=== PATIENT | male | born 1970 | race Caucasian/White ===

== ENCOUNTER → 2020-06-07 14:42 | Outpatient (BNVA) | payer OTHER, SELFPAY | PROVIDERS: Visit Provider Nurse Practitioner Family | DX: Z76.89 Persons encountering health services in other specified circumstances (principal) ==

== ENCOUNTER 2020-06-13 10:19 | Outpatient (REF) | payer OTHER, SELFPAY ==
[2020-06-13 11:11] LABS: Hematocrit 44.8 % (42-52); Mean Corpuscular HGB Conc 33.5 g/dl (31.0-36.0); Mean Corpuscular Hemoglobin 29.9 pg (27.0-33.0); Mean Corpuscular Volume 89.2 fL (80-98); Mean Platelet Volume 11.3 fL (9.4-12.4); Platelet Count 180 X10*3/uL (160-400); Red Blood Count 5.02 X10*6/uL (4.60-5.80); Red Cell Distribution Width 12.6 % (11.0-16.0); White Blood Count 6.8 X10*3/uL (4.8-10.8)
[2020-06-13 11:37] LABS: Alanine Aminotransferase 51 U/L (0-40); Albumin Level 4.3 g/dL (3.5-5.0); Alkaline Phosphatase 60 U/L (39-117); Anion Gap 13 (12-20); Aspartate Amino Transferase 36 U/L (5-37); Bilirubin Total 0.6 mg/dL (0.0-1.0); Blood Urea Nitrogen 13 mg/dL (9-16); Calcium 8.8 mg/dL (8.4-10.2); Carbon Dioxide 29 mmol/L (22-29); Chloride 105 mmol/L (96-108); Estimated Glomerular Filt Rate > 60; Glucose Random 96 mg/dL (60-115); Potassium 4.8 mmol/l (3.3-5.1); Sodium 142 mmol/L (135-145); Total Protein 7.6 g/dL (6.5-8.0)
== END 2020-06-13 10:20 | disposition home or self-care (01) ==
LOC: HO.LAB 10:19
PROVIDERS: Visit Provider Nurse Practitioner Family
DX: Z12.11 Encounter for screening for malignant neoplasm of colon (principal)
CPT/HCPCS: 36415; 80053; 85027

== ENCOUNTER 2020-08-04 09:00 | Day surgery (SDC) | payer OTHER, SELFPAY ==
[2020-07-29 12:27] VITALS: BMI 31.8
--- NOTE | 2020-08-04 | ECG_ITS ---
Test Reason : HTN, ST DEPRESSION Blood Pressure : / mmHG Vent. Rate : 069 BPM Atrial Rate : 069 BPM P-R Int : 130 ms QRS Dur : 092 ms QT Int : 428 ms P-R-T Axes : 050 034 126 degrees QTc Int : 458 ms Normal sinus rhythm [address] & T wave abnormality, consider anterolateral ischemia Abnormal ECG No previous ECGs available Referred By: Lacey Freeman Electronically Signed By:CLEVELAND ROMERO
[2020-08-04 10:05] VITALS: BMI 32.1
--- NOTE | 2020-08-04 10:09 | P.CONAN_ITS ---
HPI - Anesthesia Eval Consult details Narrative: 50 year old male patient here for colonoscopy [facility] Past Medical History Medical History Diverticulitis HTN (hypertension) Lab test negative for COVID-19 virus Family History Family History Mother HTN (hypertension) Heart problem Father No pertinent past medical history Family history of problems with anesthesia: No Surgical History Surgical History H/O sinus surgery History of Problems with Anesthesia: No Social History Social History Are you a primary palliative care physician to a significant other at home: No Do you presently have visiting nurse or other home services: No Alcohol intake: current Alcohol intake frequency: holidays/special occasions only Smoking Status: Former smoker Tobacco Type: Cigarette Smoking Quit Date: as teenager Use of substances other than those prescribed or required for medical reasons: No Substance Use Type: Marijuana Substance Use Frequency: Occasionally Have you been hit, kicked, punched, or otherwise hurt by someone within the past year? If so, by whom?: No Advance Directives Information Provided: No Recently lost weight without trying: No Meds Allergies Allergy/AdvReac Type Severity Reaction Status Date / Time shellfish derived Allergy Severe Anaphylaxis Verified 08/04/20 10:15 Penicillins Allergy Intermediate Rash Verified 08/04/20 10:15 Active Medications: Current Medications Generic Name Dose Route Start Last Admin Trade Name Freq PRN Reason Stop Dose Admin Lactated Ringer's 1,000 mls @ 100 mls/hr 08/04/20 10:15 Lr IVCONT .Q10H [facility] Home Medications Medication Instructions Recorded Confirmed Last Taken Type lisinopril 5 mg tablet 5 mg PO DAILY 06/07/20 07/29/20 Unknown History Exam Exam Date and Time: August 04, 2020 1009 Height,Weight and Vital Signs: Height 5 ft 6 in Weight 89.358 kg Vital Signs Temp Pulse Resp BP Pulse Ox 08/04/20 10:12 98.5 F 77 18 158/102 H 98 Narrative Narrative: Diastolic BP 102-104. Patient states taking lisinopril but did not take his dose today. Had been on metoprolol in the past but has been on lisin opril for years. EKG on monitor- tall QRS with ?ST depression ??LVH. Will get 12lead EKG (Tried to obtain old EKG from his PCP at [facility] but office did not worm picker). 12 lead EKG obtained- read as SR? anterolateral ischemia. Patient is asymptomatic and denies any history of chest pain or any cardiac symptoms. Only occasional mild SOB with exertion. In light of the fact that patient is asymptomatic, do not expect much perturbation with blood pressure or fluid shifts and he has already done the prep, I think it is reasonable to proceed with colonoscopy. We will control BP as needed for the procedure. The EKG finding was discussed with the patient through the vice president of recruiting and he will follow up with his PCP and ? echo as an outpatient.Dr Rachel gerardo. Spoke with textile designs sales representative and agrees with plan. Airway Mallampati Class: III TM Dist: >3cm Neck ROM: Full Heart: RRR Lungs: CTAB Assessment and Plan Assessment Anesthesia Assessment: Anesthesia Plan Discussed and Chart Reviewed Final Anesthetic Review NPO: Yes ASA Class: III Final Preanesthetic Review: No Changes in Pt Med Stat, Meds/Allgs Chart Reviewed, Consent Obtained/Reviewed and Anes Risks/Benef Reviewed Patient Risk: Intermediate Procedure Risk: Low Assessment/Block/Sedation in SS: Assess/Block/Sedation-SS Anesthetic Plan Anesthetic Plan: MAC: Disposition: Standard PACU
[2020-08-04 10:11] VITALS: BMI 32.1
[2020-08-04 10:12] VITALS: BP 158/102; PULSE 77; RESP 18; TEMP 36.9; O2SAT 98
[2020-08-04] MEDS: Lactated Ringers 1,000 ML 100 ML IVCONT (10:13)
--- NOTE | 2020-08-04 11:31 | P.HPSUR_ITS ---
Pre-Procedural Eval Section B Chief Complaint: screening Relevant Family History (Specify if Yes): No Relevant Social History: Other (specify) (thc) Present Medications: see Short Stay Collaborative assessment Medical History: Significant History (Diverticulitis HTN (hypertension)) History of Previous Operations: Relevant previous surgery/procedure and date(s) (sinus surgery) Allergies: Allergies Allergy/AdvReac Type Severity Reaction Status Date / Time shellfish derived Allergy Severe Anaphylaxis Verified 08/04/20 10:15 Penicillins Allergy Intermediate Rash Verified 08/04/20 10:15 Review of Systems Sugical H&P ROS: Negative: Constitution, Cardiovascular, Respiratory, Neurolog ical, Psychiatric, Hem-Onc, Allergic/Immunologic, Gastrointestinal, Genitourinary, Musculoskeletal, Integumentary, Endocrine and Eyes/Ears/Nose/Throat Exam Surgical H&P Exam: Normal: HEENT, Normal: Heart, Normal: Lungs, Normal: Extremities, Normal: Abdomen, Normal: Skin and Normal: Neurological Plan Diagnosis/Plan: Unchanged I have reviewed the history and physical and performed a pertinent physical examination on my patient. No changes have occurred unless specified.
--- NOTE | 2020-08-04 11:33 | PM.OP ---
Brief Operative Note Date of Service: 08/04/20 Pre-op diagnosis: colon screening Post-op diagnosis: same Procedure: see op note Surgeon: Prema Ramos MD Anesthesia: MAC Estimated blood loss (mL): 0 Condition: stable Disposition: PACU
--- NOTE | 2020-08-04 11:33 | W.PM.OPN ---
Operative Note Operative Note Date of Service: 08/04/20 Narrative: Operative Information Procedure Description: Colonoscopy COLONOSCOPY Instrument: Olympus variable stiffness pediatric scope 190L Colonoscopy Monitoring: Vital signs and clinical assessment, continuous EKG monitoring, Pulse oximetry, Carbon Dioxide monitoring and blood pressure monitoring were done throughout the procedure. Colon withdrawal time was 10 minutes. Procedure: The patient was placed in the left lateral decubitis position and pre-procedure medications were administered. After a digital rectal examination of the ano-rectum, the video colonoscope was inserted into the rectum and advanced through the colon to the cecum/TI. The colonoscope was slowly withdrawn in a retrograde panoramic fashion and the colon mucosa was carefully examined including a retroflexed view of the rectum. Findings and interventions are described below. Procedure Difficulty:easy Findings: Terminal Ileum-mild isolated erythema in one spot Cecum:normal Ascending Colon: normal Transverse Colon -normal Descending Colon:normal Sigmoid Colon: scattered small diverticula noted Rectum: Retroflexion with small internal hemorrhoids, grade II Anorectum - internal hemorrhoids seen at anal verge Colon preparation: [place] Bowel Preparation Scale Right colon; 3 Transverse colon: 3 Left colon; 3 (0 = Unprepared colon segment with mucosa not seen due to solid stool that cannot be cleared. 1 = Portion of mucosa of the colon segment seen, but other areas of the colon segment not well seen due to staining, residual stool and/or opaque liquid. 2 = Minor amount of residual staining, small fragments of stool and/or opaque liquid, but mucosa of colon segment seen well. 3 = Entire mucosa of colon segment seen well with no residual staining, small fragments of stool or opaque liquid) Impression and Post Procedure Diagnosis: mild ileitis, of doubtful significance diverticular disease internal hemorrhoids Plan: High fiber diet leaflet Avoid straining at stool, epsom salts and sitz bath, anusol supps or cream as needed Repeat Colonoscopy in 10 years or earlier if clinically indicated Above findings were reviewed with the patient and relevant handouts were provided if indicated.
[2020-08-04 12:04] VITALS: BP 135/79; PULSE 80; RESP 14; TEMP 36.2; O2SAT 99
[2020-08-04 12:19] VITALS: BP 143/95; PULSE 91; RESP 18; O2SAT 100
[2020-08-04 12:29] VITALS: TEMP 36.6
== END 2020-08-04 13:03 | disposition home or self-care (01) ==
PROVIDERS: Visit Provider Internal Medicine Gastroenterology
PROC: 0DJD8ZZ Inspection of Lower Intestinal Tract, Via Natural or Artificial Opening Endoscopic (ICD-10-PCS; CPT 45378; principal; 2020-08-04 11:50)
DX: Z12.11 Encounter for screening for malignant neoplasm of colon (principal); Z87.19 Personal history of other diseases of the digestive system; K57.30 Diverticulosis of large intestine without perforation or abscess without bleeding; K64.1 Second degree hemorrhoids; K59.00 Constipation, unspecified; I10 Essential (primary) hypertension; Z79.899 Other long term (current) drug therapy; Z87.891 Personal history of nicotine dependence; F12.90 Cannabis use, unspecified, uncomplicated; Z88.0 Allergy status to penicillin
CPT/HCPCS: 45378; 93005

== ENCOUNTER 2023-11-12 08:15 | Outpatient (REF) | payer OTHER, SELFPAY ==
[2023-11-12 11:32] LABS: Estimated Average Glucose 123 mg/dL; Hemoglobin A1c % 5.9 % (<6.0)
[2023-11-12 12:00] LABS: Creatinine Urine 176.54 mg/dL; Microalbum/Creatinine Ratio Ur 15.8 ug/mg cr (<30)
[2023-11-12 12:17] LABS: Anion Gap 12 (12-20); Blood Urea Nitrogen 11 mg/dL (9-16); Carbon Dioxide 26 mmol/L (22-29); Chloride 106 mmol/L (96-108); Cholesterol 208 mg/dL (<200); Estimated Glomerular Filt Rate > 60; Glucose Random 109 mg/dL (60-115); HDL Cholesterol 44 mg/dL (>40); LDL Cholesterol Calculated 154 mg/dL (<100); Potassium 4.5 mmol/L (3.3-5.1); Sodium 139 mmol/L (135-145); Triglycerides 54 mg/dL (<150)
== END 2023-11-12 08:16 | disposition home or self-care (01) ==
LOC: HO.HHCL 08:15
PROVIDERS: Visit Provider Nurse Practitioner
DX: I10 Essential (primary) hypertension (principal)
CPT/HCPCS: 36415; 80048; 80061; 82043; 82570; 83036

== ENCOUNTER 2024-07-23 07:57 | Outpatient (REF) | payer OTHER, SELFPAY ==
--- OUTSIDE RECORDS SUMMARY | 2024-07-23 07:59 | XMS_ITS | Clinical Summary ---
Author Organization [facility] it Address [address] [place] [address] Care Team Providers Care Energy Projects Lead Name Role Phone Unavailable Primary Care Provider Unavailabl e Social History Tobacco Use Types Packs/Day Years Used Date Smoking Tobacco: Never Assessed Sex and Gender Information Value Date Recorded Sex Assigned at Not on file Legal Sex Male 6:15 AM EST Gender Identity Not on file Sexual Orientation Not on file Plan of Treatment Health Maintenance Due Date Last Done Comments DTaP,Tdap,and Td Vaccines (1 - Tdap) 1988 Hepatitis B Vaccines (1 of 3 - 19+ 3-dose series) 1988 Pneumococcal Vaccine: 50+ Ye ars (1 of 1 - PCV) 2019 Zoster Vaccines (1 of 2) 2019 Cholesterol Screening (Lipid Panel) 01/28/2024 Colorectal Cancer Screening: Colonoscopy 01/28/2024 Depression Screening 01/28/2024 HIV Screening 01/28/2024 Hepatitis C Screening 01/28/2024 Hypertension/CHF/CAD Annual BMP Blood Test 01/28/2024 Social Influencers of Health Screening 01/28/2024 COVID-19 Vaccine ( - 2023-2 5 season) 2024 Influenza Vaccine (#1) 2024 HIB Vaccines Aged Out No longer eligi ble based on patient's age to complete this topic HPV Vaccines Aged Out No longer eligi ble based on patient's age to complete this topic Hepatitis A Vaccines Aged Out No long er eligible based on patient's age to complete this topic IPV Vaccines Aged Out No longer eligi ble based on patient's age to complete this topic MMR Vaccines Aged Out No longer eligi ble based on patient's age to complete this topic Meningococcal ACWY Vaccine Aged Out N o longer eligible based on patient's age to complete this topic Meningococcal B Vacine Aged Out No lo nger eligible based on patient's age to complete this topic Pneumococcal Vaccine: Pediat rics (0 to 5 Years) and At-Risk Patients (6 to 64 Years) Aged Out No longer eligible b ased on patient's age to complete this topic RSV Immunization Patients Un lucien 20 months Aged Out No longer eligible b ased on patient's age to complete this topic Varicella Vaccines Aged Out No longer eligible based on patient's age to complete this topic
--- OUTSIDE RECORDS SUMMARY | 2024-07-23 07:59 | XMS_ITS | Encounter Summary ---
Author Organization [employer] Address [address] [facility] [address] [place] [address] Care Team Providers Care Advanced Practice Registered Nurse Name Role Phone Reshma Chiu NP Primary Care Provider [phone] Reason for Visit * Reason Comments Follow-up Encounter Details Date Type Department Care Team ([facility] st Contact Info) Description 07/22/2024 3:30 PM EST Office Visit [facility] [address] [place] [address] Reshma Chiu NP [address] [place] [address] Encounter for health-related screening (Primary Dx); Essential hypertension; Encounter for immunization Social History Tobacco Use Types Packs/Day Years Used Date Smoking Tobacco: Never Smokeless Tobacco: Never Alcohol Answer Date Recorded How often do you have a drink containing alcohol ? 2 11/08/2023 How many drinks containing a lcohol do you have on a typical day when you are drinking? 2 11/08/2023 How often do you have six or more drinks on one occasion? 2 11/08/2023 Depression Answer Date Recorded Patient Health Questionnaire-9 Score 4 02/24/2024 Patient Health Questionnaire-9 Score 4 02/24/2024 Last PHQ-9: Questionnaire Data Not on file 0 02/24/2024 Housing Stability Answer Date Recorded What is your housing situation today? I have housing today, but I am worried about losing housing in the future 11/08/[address] you li ve. Do you have problems with any of the following? None of the above 11/08/2023 Food Insecurity Answer Date Recorded Within the past 12 months, y ou worried that your food would run out before you got money to buy more: Often true 11/08/2023 Within the past 12 months,th e food you bought just didn't last and you didn't have enough money to get more: Often true 12/2023 Transportation Answer Date Recorded In the past 12 months, has l ack of transportation kept you from medical appts, meetings, work or from getting things needed for daily living? No 11/08/2023 Utilities Answer Date Recorded In the past 12 months, has t he [employer], gas, oil or water [employer] threatened to shut off services in your home? I am not sure 11/08/2023 Depression Answer Date Recorded Patient Health Questionnaire-2 Score 3 02/24/2024 Sex and Gender Information Value Date Recorded Sex Assigned at Male 04/02/2022 10:35 AM EDT Legal Sex Male 10:35 AM EDT Gender Identity Male 04/02/2022 10:35 AM EDT Sexual Orientation Straight 04/02/2022 10 :35 AM EDT documented as of this encounter Last Filed Vital Signs Vital Sign Reading Time Taken Comments Blood Pressure 148/82 07/22/2024 4:37 PM EST Pulse 78 07/22/2024 4:04 PM EST Temperature 37 ??C (98.6 ??F) 07/22/2024 4:04 PM EST Respiratory Rate 18 07/22/2024 4:04 PM EST Oxygen Saturation 98% 07/22/2024 4:04 PM EST Inhaled Oxygen Concentration - - Weight 87.4 kg (192 lb 9.6 oz) 07/22/2024 4:04 P M EST Height 167.6 cm (5' 6 ) 07/22/2024 4:04 PM EST Body Mass Index 31.09 07/22/2024 4:04 PM EST documented in this encounter Plan of Treatment Scheduled Orders Name Type Priority Associated Diagnoses Orde r Schedule HIV-1/2 Antigen and Antibodies, Fourth Generation, with Reflexes Lab Routine Encounter for health-related screening Expected: 07/22/2024 (Approximate), Expires: 07/22/2025 Hepatitis C Antibody with Reflex to HCV, RNA, Quantitative, Real-Time PCR Lab Routine Encounter for health-related screening Expected: 07/22/2024 (Approximate), Expires: 07/22/2025 Hepatitis B surface antigen, EIA Lab Routine Encounter for health-related screening Expected: 07/22/2024 (Approximate), Expires: 07/22/2025 Hepatitis B Surface Antibody, Qualitative Lab Routine Encounter for health-related screening Expected: 07/22/2024 (Approximate), Expires: 07/22/2025 Hepatitis B Core Antibody, Total Lab Routine Encounter for health-related screening Expected: 07/22/2024 (Approximate), Expires: 07/22/2025 documented as of this encounter Visit Diagnoses Diagnosis Encounter for health-related screening- Primary Essential hypertension Unspecified essential hypertension Encounter for immunization documented in this encounter Additional Health Concerns Assessment Noted Time PHQ-9 Depression Total Score: 4 02/24/20 24 12:07 PM EDT documented as of this encounter Care Teams Advanced Practice Registered Nurse Relationship Specialty Start Date End Date Reshma Chiu NP [address] [place] [id number] PCP - General Family Medicine 07/08/23 documented as of this encounter
--- OUTSIDE RECORDS SUMMARY | 2024-07-23 07:59 | XMS_ITS | Encounter Summary ---
Author Organization [employer] Address [address] [facility] [address] [place] [address] Care Team Providers Care Aerodynamics Engineer Name Role Phone Reshma Chiu NP Primary Care Provider [phone] Reason for Visit * Reason Comments Follow-up Encounter Details Date Type Department Care Team ([facility] st Contact Info) Description 07/10/2024 3:30 PM EST Office Visit [facility] [address] [place] [address] Reshma Chiu NP [address] [place] [address] Primary hypertension Social History Tobacco Use Types Packs/Day Years [...] the past 12 months, has t he [employer], gas, oil or water [employer] threatened to shut off services in your [...] Sign Reading Time Taken Comments Blood Pressure 176/100 07/10/2024 4:04 PM EST Pulse 80 07/10/2024 4:04 PM EST Temperature 36.7 ??C (98.1 ??F) 07/10/2024 4:04 PM ES T Respiratory Rate 20 07/10/2024 4:04 PM EST Oxygen Saturation 98% 07/10/2024 4:04 PM EST Inhaled Oxygen Concentration - - Weight 86.6 kg (191 lb) 07/10/2024 4:04 PM EST Height 167.6 cm (5' 6 ) 07/10/2024 4:04 PM EST Body Mass Index 30.83 07/10/2024 4:04 PM EST documented in this encounter Plan of Treatment Not on file documented as of this encounter Visit Diagnoses Diagnosis Primary hypertension Unspecified essential hypertension documented in this encounter Additional Health Concerns Assessment Noted Time PHQ-9 Depression Total Score: 4 02/24/20 24 12:07 PM EDT documented as of this encounter Care Teams Aerodynamics Engineer Relationship Specialty Start Date End Date Reshma Chiu NP [address] [place] [id number] PCP - General Family Medicine 07/08/23 documented as of this encounter
--- OUTSIDE RECORDS SUMMARY | 2024-07-23 07:59 | XMS_ITS | Encounter Summary ---
Author Organization [employer] Address [address] [facility] [address] [place] [address] Care Team Providers Care Voice Pathologist Name Role Phone Reshma Chiu NP Primary Care Provider Reason for Visit * Reason Onset Date Comments chartprep 07/07/2024 Encounter Details Date Type Department Care Team (Late st Contact Info) Description 07/07/2024 Telephone [facility] [address] [place] [address] Lashay Ziegler MA chartprep Social History Tobacco Use Types Packs/Day Years [...] the past 12 months, has t he electric, gas, oil or water company threatened to shut off services in your [...] AM EDT documented as of this encounter Miscellaneous Notes * Telephone Encounter - Lashay Ziegler MA - 07/07/2024 12:07 PM EST Chart Prep Labs: done except Lipid panel and CMP Images: not done XR lumbar spine Vaccines due: Covid Due, Tdap Due, Hep B Due, Flu Due, and Shingles in pharmacy Due Referrals: Physical Therapy Pending appointment on Screenings: Colonoscopy and HIV screening Overdue care gaps: None documented in this encounter Plan of Treatment Not on file documented as of this encounter Visit Diagnoses Not on filedocumented in this encounter Additional Health Concerns Assessment Noted Time PHQ-9 Depression Total Score: 4 02/24/20 12:07 PM EDT documented as of this encounter Care Teams Voice Pathologist Relationship Specialty Start Date End Date Reshma Chiu NP [address] [place] [address] PCP - General Family Medicine 07/08/23 documented as of this encounter
--- OUTSIDE RECORDS SUMMARY | 2024-07-23 07:59 | XMS_ITS | Clinical Summary ---
Author Organization [employer] Address [address] [facility] [address] [place] [address] Care Team Providers Care Jewel Gauger Name Role Phone Reshma Chiu NP Primary Care Provider [phone] Allergies Active Allergy Reactions Criticality Noted Date Comments Penicillin G Hives 10/06/2018 Shellfish Allergy Hives 02/24/2024 Medications lidocaine (Lidoderm) 5 % patchIndication s:Lumbar back pain Apply 1 patch topically Once per day. Remove & discard patch within 12 hours or as directed by MD. 30 patch 1 02/24/20 24 Active baclofen (Lioresal) 10 MG tabletIndicatio ns:Lumbar back pain Take one tablet TID PRN 30 tablet 02/24/20 24 Active losartan (Cozaar) 50 MG tabletIndicatio ns:Primary hypertension Take 1 tablet (50 mg) by mouth 2 times daily. 60 tablet 1 07/10/19 25 025 Active labetalol (Normodyne) 200 MG tabletIndicatio ns:Primary hypertension Take 1 tablet (200 mg) by mouth 2 times daily. 60 tablet 07/10/19 25 025 Active amLODIPine (Norvasc) 10 MG tabletIndicatio ns:Primary hypertension Take 1 tablet (10 mg) by mouth Once per day. 30 tablet 07/10/19 25 025 Active aspirin 81 MG chewable tabletIndicatio ns:Essential hypertension Chew 1 tablet (81 mg) Once per day. 30 tablet 3 07/22/19 25 025 Active amLODIPine (Norvasc) 10 MG tabletIndicatio ns:Primary hypertension Take 1 tablet (10 mg) by mouth Once per day. 30 tablet 10/18/19 24 025 Discontinued(Re order (will not trigger notification to Pharmacy)) labetalol (Normodyne) 200 MG tabletIndicatio ns:Primary hypertension Take 1 tablet (200 mg) by mouth 2 times daily. 60 tablet 10/18/19 24 025 Discontinued(Re order (will not trigger notification to Pharmacy)) losartan (Cozaar) 50 MG tabletIndicatio ns:Primary hypertension Take 1.5 tablets (75 mg) by mouth Once per day. 45 tablet 10/18/19 24 025 Discontinued(Re order (will not trigger notification to Pharmacy)) Active Problems Problem Noted Date Diagnosed Date Hypercholesterolemia 05/20/2024 Assessment & Plan (05/20/2024 5:49 PM EST): Images from the original note were not included. -discussed importance of lifestyle modifications for prevention of stroke or heart attack -plan to start statin at next visit as patient has not proven effective management of his BP meds -will benefit from aspirin therapy for primary prevention as well however, patient's BP does not support this intervention Prediabetes 10/08/2018 Essential hypertension 10/06/2018 Assessment & Plan (05/20/2024 5:54 PM EST): -hypertension is not controlled. BP elevated in clinic today, but he states he has not taken his medications as of yet today. He is asymptomatic and advised to take his medications immediately following this appointment -No evidence of kidney impairment based on labs completed 11/12/23 -ASCVD risk 9.9% -discussed in detail negative implications associated with lack of BP control -strongly recommended he eliminate salt from his diet. Especially daily ham sandwich and monitor for changes in his lunch time readings. -stress management strongly encouraged -Reviewed diet, exercise and weight control -Reviewed appropriate medication dosing in detail with patient verbalizing understanding. Will likely benefit from change in ARB frequency -discussed BP follow-up on 03/02 with team nurses. He is encouraged to bring his BP log -ED precautions reviewed -Repeat labs ordered prior to next appointment. Assessment & Plan (01/21/2024 12:38 PM EDT): -BP above target goal of <130/80 mmHg -continue losartan 50 mg, amlodipine 10 mg, and labetalol 200 mg -microalbumin: ordered today -ASCVD risk: to be calculated pending lipid results -12 lead EKG: will obtain at next visit -daily BP monitoring advised -low salt diet and 30 min moderate intensity daily exercise recommended -Reviewed ED precautions to include chest pain, shortness of breath, severe headache, sudden vision changes or BP >=180/>=120 mmHg. -Call clinic if three or more BP readings >130/80 mmHg. -follow-up 1 month Assessment & Plan (01/14/2024 11:13 AM EDT): -patient denies need for medication refill -ED precautions reviewed -will schedule for in-person visit for follow-up in about 2 weeks Chronic low back pain 10/06/2018 Obesity 10/06/2018 Chronic constipation 10/06/2018 Encounters Date Type Department Care Team Description 07/22/2024 3:30 PM EST Office Visit [facility] [address] [place] [phone] Reshma Chiu NP Encounter for health-related screening (Primary Dx); Essential hypertension; Encounter for immunization 07/22/2024 Travel 07/10/2024 3:30 PM EST Office Visit [address] [address] Reshma Chiu NP Primary hypertension 07/07/[address] [address] Lashay Ziegler MA chartprep 06/16/[address] [address] Lashay Ziegler MA chartprep 05/21/[address] [address] Gretel Ordaz RN from Last 3 Months Immunizations Name Administration Dates Next Due Hep B, Unspecified 12/29/2015 Hep B, adult 01/30/2016,12/29/2015 Tdap 07/22/2024 Social History Tobacco Use Types Packs/Day Years [...] Orientation Straight 04/02/2022 10 :35 AM EDT Last Filed Vital Signs Vital Sign Reading [...] Mass Index 31.09 07/22/2024 4:04 PM EST Plan of Treatment Health Maintenance Due Date Last Done Comments CT Colonography 1969 Colonoscopy 1969 Colorectal Cancer Screening 1969 FIT DNA/Cologuard 1969 FIT 1969 FOBT 1969 HIV Screening 1969 Sigmoidoscopy 1969 Hepatitis C Screening 1987 Hepatitis B Vaccines (3 of 3 - 19+ 3-dose series) 06/30/2016 01/30/2016, 12/29/2015, 12/29/2015 Pneumococcal Vaccine: 50+ Years (1 of 1 - PCV) 2019 Zoster Vaccines (1 of 2) 2019 COVID-19 Vaccine (3 - 2023-2 5 season) 2024 11/04/2020, 09/30/2020 Influenza Vaccine (#1) 2024 Alcohol/Substance Use Screening 11/07/2024 11/08/2023 SDOH Screening 11/07/2024 11/08/2023 Diabetes: Hemoglobin A1C 11/11/2024 11/12/2023 Depression Screening 02/23/2025 02/24/2024, 02/24/2024 Tobacco Screening 07/22/2025 07/22/2024 Lipid Panel 11/11/2028 11/12/2023 DTaP/Tdap/Td Vaccines (2 - T d or Tdap) 07/22/2034 07/22/2024 RSV Patients and Patients Aged 60 years or older (1 - 1-dose 75+ series) 2044 HIB Vaccines Aged Out No longer eligi [...] patient's age to complete this topic Meningococcal Vaccine Aged Out No marco antonio abdon eligible based on patient's age to complete this topic RSV under 20 months Aged Out No longe r eligible based on patient's age to complete this topic Rotavirus Vaccines Aged Out No longer eligible based on patient's age to complete this topic Procedures Procedure Name Priority Date/Time Associated Diagnosis Comments HEMOGLOBIN A1C Routine 11/12/2023 8:17 AM EDT Essential hypertension LIPID PANEL, STANDARD Routine 11/12/2023 8:17 AM EDT Essential hypertension from Last 3 Months or Most Recently Relevant to Health Maintenance Results * Hemoglobin A1c (11/12/2023 8:17 AM EDT) Hemoglobin A1c 5.9 <6.0 % [facility] Comment:Hemoglobin A1C Refer ence Range Adults: 4.8 - 6.0 % Non diabetic: < 6.0 % Goal: < 7.0 %Additional Action Suggested: > 8.0 %Note: Hemoglobin A1c results are invalid for patients with abnormal amounts of HbF. Blood transfusions may impact the HbA1c concentration in the patient sample. Estimated Average Glucose 123 mg/dL [facility] Comment:eAG = Estimated ave rage glucose which is %A1C expressed asaverage glucose, using the formula of the E1H-DqfncmvQffwqgw Glucose study (ADAG), Diabetes Care, Vol.31,#8,Jan. 2007 Blood Venous blood specimen / Unknown 11/12/2023 8:17 AM EDT 11/12/2023 11:11 AM EDT us Reshma Chiu RETENTION MANAGER LAB BLOOD ORDERABLES Final Resu lt [facility] [address] [place] [phone] * (ABNORMAL) Lipid Panel, Standard (11/12/2023 8:17 AM EDT) Triglycerides 54 <150 mg/dL [facility] Comment:Desirable Triglyceri de: less than 150 mg/dLBorderline High Triglyceride 150-199 mg/dLHigh Triglyceride: 200-499 mg/dLVery High Triglyceride: greater than or equal to 5OO mg/dL Cholesterol 208(H) <200 mg/dL [facility] Comment:Desirable Cholestero l: less than 200 mg/dLBorderline High Cholesterol: 200-239 mg/dLHigh Cholesterol: greater than 239 mg/dL LDL Cholesterol Calculated 154(H) <100 mg/dL [facility] Comment:Desirable LDL: less than 100 mg/dLNear Optimal/Above Optimal LDL: 110- 129 mg/dLBorderline High LDL: 130-159 mg/dLHigh LDL: 160-189 mg/dLVery High LDL: greater than or equal to 190 mg/dL HDL Cholesterol 44 >40 mg/dL [facility] Comment:Desirable HDL: great er than 40 mg/dL Note: This HDL assay may give artificially low results in patients with liver disease. Blood Venous blood specimen / Unknown 11/12/2023 8:17 AM EDT 11/12/2023 11:09 AM EDT us Reshma Chiu RETENTION MANAGER LAB BLOOD ORDERABLES Final Resu lt [facility] [address] [place] [phone] from Last 3 Months or Most Recently Relevant to Health Maintenance Insurance [facility] Care Teams Jewel Gauger Relationship Specialty Start Date End Date Reshma Chiu NP [address] [place] [phone] PCP - General Family Medicine 07/08/23
--- OUTSIDE RECORDS SUMMARY | 2024-07-23 07:59 | XMS_ITS | Encounter Summary ---
Author Organization [employer] Address [address] [facility] [address] [place] [address] Care Team Providers Care Live Source Operator Name Role Phone Reshma Chiu NP Primary Care Provider [phone] Encounter Details Date Type Department Care Team (Latest Contact Info) Description 07/22/2024 Travel Social History Tobacco Use Types Packs/Day Years [...] AM EDT documented as of this encounter Plan of Treatment Not on file documented as of this encounter Visit Diagnoses Not on filedocumented in this encounter Additional Health Concerns Assessment Noted Time PHQ-9 Depression Total Score: 4 02/24/20 24 12:07 PM EDT documented as of this encounter Care Teams Live Source Operator Relationship Specialty Start Date End Date Reshma Chiu NP [address] [place] [phone] PCP - General Family Medicine 07/08/23 documented as of this encounter
[2024-07-23 12:09] LABS: Alanine Aminotransferase 127 U/L (0-40); Albumin Level 4.1 g/dL (3.5-5.0); Alkaline Phosphatase 55 U/L (39-117); Anion Gap 12 (12-20); Aspartate Amino Transferase 97 U/L (5-37); Bilirubin Total 0.5 mg/dL (0.0-1.0); Blood Urea Nitrogen 15 mg/dL (9-16); Calcium 9.3 mg/dL (8.4-10.2); Carbon Dioxide 27 mmol/L (22-29); Chloride 107 mmol/L (96-108); Cholesterol 193 mg/dL (<200); Estimated Glomerular Filt Rate > 60; Glucose Random 117 mg/dL (60-115); HDL Cholesterol 48 mg/dL (>40); LDL Cholesterol Calculated 136 mg/dL (<100); Potassium 4.9 mmol/L (3.3-5.1); Sodium 141 mmol/L (135-145); Total Protein 7.9 g/dL (6.5-8.0); Triglycerides 47 mg/dL (<150)
[2024-07-23 12:28] LABS: HBS Num1 1.06 mIU/mL (0-7.99); HBc Num1 0.11 S/CO (0.00-0.79); HBsAGNum1 0.33 S/CO (0.00-0.99); HIV AB/AG Nonreactive (Nonreactive); HIV Num 1 0.05 S/CO (0.00-0.99); Hepatitis B Core Antibody Nonreactive (Nonreactive); Hepatitis B Surface Antigen Negative (Negative); ~HepC Num1 0.08 S/CO (0.00-0.79); ~Hepatitis B Surface Antibody NONREACTIVE (Nonreactive); ~Hepatitis C Antibody Nonreactive (Nonreactive)
== END 2024-07-23 07:58 | disposition home or self-care (01) ==
LOC: HO.HHCL 07:57
PROVIDERS: Visit Provider Nurse Practitioner
DX: I10 Essential (primary) hypertension (principal); E78.00 Pure hypercholesterolemia, unspecified
CPT/HCPCS: 36415; 80053; 80061; 86704; 86706; 86803; 87340; 87389

== ENCOUNTER 2025-05-21 09:44 | Outpatient (REF) | payer OTHER, SELFPAY ==
--- OUTSIDE RECORDS SUMMARY | 2025-05-21 09:00 | XMS_ITS | Encounter Summary ---
Author Organization [employer] Address [address] [place] [id number] Care Team Providers Care Produce Wrapper Name Role Phone Reshma Chiu NP Primary Care Provider [phone] Reason for Referral * Consultation (Routine) - Pending Review Specialty Diagnoses / Procedures Referred By Bryan iniguez Referred To Contact Urology Diagnoses Lower urinary tract symptoms Annalee Izquierdo FNP [address] [place] [address] Phone: tel: fax: Referral ID Status Reason Start Date Expiration Date Visits Requested Visits Authorized [id number] Pending Review Specialty Services Required 5 05/21/2026 1 1 Reason for Visit * Reason Comments Prostate Check Encounter Details Date Type Department Care Team (Late st Contact Info) Description 05/21/2025 9:00 AM EST Office Visit [facility] [address] [place] [phone] Annalee Izquierdo FNP [address] [place] [address] Essential hypertension (Primary Dx); Lower urinary tract symptoms Social History Tobacco Use Types Packs/Day Years Used Date Smoking Tobacco: Never Smokeless Tobacco: Never Tobacco Cessation:Counseling Given: Not Answered Alcohol Answer Date Recorded How often do [...] Sign Reading Time Taken Comments Blood Pressure 158/98 05/21/2025 9:24 AM EST Pulse 92 05/21/2025 8:58 AM EST Temperature 37.1 C (98.7 F) 05/21/2025 8:58 AM EST Respiratory Rate 18 05/21/2025 8:58 AM EST Oxygen Saturation 97% 05/21/2025 8:58 AM EST Inhaled Oxygen Concentration - - Weight 88 kg (194 lb) 05/21/2025 8:58 AM EST Height - - Body Mass Index 31.31 07/22/2024 4:04 PM EST documented in this encounter Progress Notes * [facility], [facility] [employer] - 05/21/2025 9:00 AM EST SUBJECTIVE: Khai Lyman is a 55 y.o. year old male who presents for evaluation of urinary sx HPI Urinary Symptoms - Noted very yellow urine for the past 3 months - Difficulty initiating urination for the past 3 months - Occasional urgency, sometimes barely able to reach the bathroom - No pain or burning with urination Erectile Dysfunction - Problems with erections reported Problem List[1] Review of Systems Constitutional: Negative for activity change, diaphoresis, fatigue, fever and unexpected weight change. Eyes: Negative for visual disturbance. Respiratory: Negative for apnea, cough, chest tightness and shortness of breath. Cardiovascular: Negative for chest pain, palpitations and leg swelling. Gastrointestinal: Negative for abdominal pain and nausea. Genitourinary: Positive for difficulty urinating and frequency. Negative for dysuria, flank pain, hematuria and penile discharge. Neurological: Negative for dizziness, syncope, light-headedness and headaches. OBJECTIVE: Vitals: 05/21/25 0858 05/21/25 0924 BP: (!) 205/116 (!) 158/98 BP Location: Left arm Patient Position: Sitting BP Cuff Size: Large adult long Pulse: 92 Resp: 18 Temp: 98.7 ??F (37.1 ??C) TempSrc: Temporal SpO2: 97% Weight: 194 lb (88 kg) Physical Exam Constitutional: Appearance: Normal appearance. HENT: Head: Normocephalic. Right Ear: External ear normal. Left Ear: External ear normal. Nose: Nose normal. Eyes: Conjunctiva/sclera: Conjunctivae normal. Cardiovascular: Rate and Rhythm: Normal rate and regular rhythm. Heart sounds: Normal heart sounds. Pulmonary: Effort: Pulmonary effort is normal. Breath sounds: Normal breath sounds. Genitourinary: Comments: Decline CYRIL Musculoskeletal: Right lower leg: No edema. Left lower leg: No edema. Skin: General: Skin is warm and dry. Capillary Refill: Capillary refill takes less than 2 seconds. Neurological: General: No focal deficit present. Mental Status: He is alert and oriented to person, place, and time. Psychiatric: Mood and Affect: Mood normal. Behavior: Behavior normal. ASSESSMENT/PLAN Lower Urinary Tract symptoms - UA in office negative - Check PSA - Referral to urology for further evaluation - Declines CYRIL in office Hypertension - Significant BP elevation on arrival to office with improvement to 158/98. Pt asymptomatic. Reports home readings also elevated despite medication compliance - INCREASE losartan to 100mg daily - RN BP check 2 weeks Reviewed ED precautions to include chest pain, shortness of breath, severe headache, sudden vision changes or BP >=180/>=120 mmHg. Contact HC if three or more BP readings >140/90. Diagnosis Plan 1. Essential hypertension losartan (Cozaar) 100 MG tablet 2. Lower urinary tract symptoms POCT urinalysis dipstick manually resulted (CPT 93268) PSA,Total Comprehensive Metabolic Panel PSA,Total Comprehensive Metabolic Panel Referral to Urology Referral to Urology This note was drafted using Ambient (AI) technology. The patient/patient's guardian has been informed and has consented to the use of this technology: Yes Follow Up: 2 weeks RN BP check Medications Ordered Prior to Encounter[2] Iraqi Translation: Provided by [facility] Staff member [1] Patient Active Problem List Diagnosis Essential hypertension Chronic low back pain Obesity Prediabetes Chronic constipation Hypercholesterolemia [2] Current Outpatient Medications on File Prior to Visit Medication Sig Dispense Refill amLODIPine (Norvasc) 10 MG tablet TOME DAVIS TABLETA POR VIA ORAL TODOS LOS WEBER 90 tablet 0 baclofen (Lioresal) 10 MG tablet Take one tablet TID PRN 30 tablet 0 labetalol (Normodyne) 200 MG tablet TOME 1 TABLETA POR VIA ORAL DOS VECES AL MYRIAM 180 tablet 0 lidocaine (Lidoderm) 5 % patch Apply 1 patch topically Once per day. Remove & discard patch within 12 hours or as directed by MD. 30 patch 1 losartan (Cozaar) 50 MG tablet TOME 1 TABLETA POR VIA ORAL DOS VECES AL MYRIAM 180 tablet 0 No current facility-administered medications on file prior to visit. documented in this encounter Plan of Treatment Upcoming Encounters Date Type Department Care Team (Late st Contact Info) Description 06/09/2025 10:00 AM EST Clinical Support [address] [address] Scheduled Orders Name Type Priority Associated Diagnoses Orde r Schedule PSA,Total Lab Routine Lower urinary tract symptoms Expected: 05/21/2025, Expires: 05/21/2026 Comprehensive Metabolic Panel Lab Routine Lower urinary tract symptoms Expected: 05/21/2025 (Approximate), Expires: 05/21/2026 Scheduled Referrals Name Type Priority Associated Diagnoses Orde r Schedule Referral to Urology Outpatient Referral Routine Lower urinary tract symptoms Expected: 05/21/2025 (Approximate), Expires: 05/21/2026 documented as of this encounter Procedures Procedure Name Priority Date/Time Associated Diagnosis Comments POCT URINALYSIS DIPSTICK Routine 05/21/2025 9:33 AM EST Lower urinary tract symptoms documented in this encounter Results * POCT urinalysis dipstick manually resulted (CPT 69260) (05/21/2025 9:33 AM EST) Color, UA Yellow Comment:Dark Clarity, UA Clear Glucose, UA Negative Bilirubin, UA Few 15 Ketones, UA Positive Comment:Trace Spec Grav, UA 1.025 Blood, UA Negative Negative, None Detected pH, UA 7.0 Protein, UA 1+ 70+ Comment:100mg Urobilinogen, UA 2.0 Leukocytes, UA Negative Negative, Rare, Trace, 1+ (17), 2+ (35), 3+ (70), Trace (15) Nitrite, UA Negative Negative, None Detected Appearance, UA OK Urine (Urine, Random) 05/21/2025 9:33 AM EST [facility] POINT OF CARE TEST ENTER/EDIT ORDERABLES Final Result documented in this encounter Visit Diagnoses Diagnosis Essential hypertension- Primary Unspecified essential hypertension Lower urinary tract symptoms Other symptoms involving urinary system documented in this encounter Additional Health Concerns Assessment Noted Time PHQ-9 Depression Total Score: 4 02/24/20 24 12:07 PM EDT documented as of this encounter Care Teams Produce Wrapper Relationship Specialty Start Date End Date Reshma Chiu NP [address] [place] [address] PCP - General Family Medicine 07/08/23 documented as of this encounter
--- OUTSIDE RECORDS SUMMARY | 2025-05-21 10:36 | XMS_ITS | Clinical Summary ---
Author Organization [facility] Address [address] [place] [address] 7 [place] [address] Care Team Providers Care Outsole Paraffiner Name Role Phone Reshma Chiu NP Primary Care Provider [phone] Allergies Active Allergy Reactions Criticality Noted Date Comments Penicillin G Hives 10/06/2018 Shellfish Allergy Hives 02/24/2024 Medications lidocaine (Lidoderm) 5 % patchIndications :Lumbar back pain Apply 1 patch topically Once per day. Remove & discard patch within 12 hours or as directed by MD. 30 patch 1 02/24/20 24 Active baclofen (Lioresal) 10 MG tabletIndication s:Lumbar back pain Take one tablet TID PRN 30 tablet 02/24/20 24 Active labetalol (Normodyne) 200 MG tabletIndication s:Primary hypertension TOME 1 TABLETA POR VIA ORAL DOS VECES AL MYRIAM 180 tablet 08/07/19 25 Active amLODIPine (Norvasc) 10 MG tabletIndication s:Primary hypertension TOME DAVIS TABLETA POR VIA ORAL TODOS LOS WEBER 90 tablet 08/07/19 25 Active losartan (Cozaar) 100 MG tabletIndication s:Essential hypertension Take 1 tablet (100 mg) by mouth Once per day. 30 tablet 11 05/21/20 25 026 Active losartan (Cozaar) 50 MG tabletIndication s:Primary hypertension TOME 1 TABLETA POR VIA ORAL DOS VECES AL MYRIAM 180 tablet 08/07/19 25 025 Discontinued Active Problems Problem Noted Date Diagnosed Date [...] 10/08/2018 Essential hypertension 10/06/2018 Assessment & Plan (10/01/2024 12:14 PM EDT): -improvements in home readings since increasing losartan 50 mg two times daily. Continue at this dose in addition to labetalol and amlodipine -start aspirin 81 mg qd for primary prevention -he is encouraged to complete previously ordered metabolic labs - stressed importance of aerobic exercise to reduce BP. Initial goal of 30 min walk 3-5x/week. Increase as tolerated. - low-sodium diet (goal: <2g/day) and heart healthy diet such as DASH to reduce BP and prevent ASCVD. - Home BP monitoring 1-2 x day with goal of <140/90. - Seek immediate medical attention for chest pain, palpitations, SOB, syncope, or sudden changes in mental status. -follow-up 1 month Assessment & Plan (09/25/2024 5:50 PM EDT): -Hypertension poorly controlled. -The following changes are to be made: take losartan to 50 mg two times daily (changed from 75 mg every day) -Reviewed diet, exercise and weight control. -Cardiovascular risk associated with uncontrolled hypertension reviewed. -Discussed starting statin for primary prevention however given difficulty with current med compliance, will revisit again at follow-up -lifestyle modifications and stress management reinforced -continued home monitoring encouraged -ED precautions reviewed Assessment & Plan (05/20/2024 5:54 PM EST): [...] Encounters Date Type Department Care Team Description 05/21/2025 9:00 AM EST Office Visit [facility] [address] [place] [address] Annalee Izquierdo FNP Essential hypertension (Primary Dx); Lower urinary tract symptoms 05/21/2025 Travel 05/20/2025 Telephone [facility] [address] [place], [place] [phone] Reshma Chiu NP Nurse Triage from Last 3 Months Immunizations Immunization Administration Dates Next Due Hep B, Unspecified [...] (194 lb) 05/21/2025 8:58 AM EST Height 167.6 cm (5' 6 ) 07/22/2024 4:04 PM EST Body Mass Index 31.31 07/22/2024 4:04 PM EST Plan of Treatment Upcoming Encounters Date Type Department Care Team (Late st Contact Info) Description 06/09/2025 10:00 AM EST Clinical Support [facility] [address] [place] [address] Health Maintenance Due Date Last Done Comments CT Colonography 1969 FIT DNA/Cologuard 1969 FIT 1969 FOBT 1969 Sigmoidoscopy 1969 Disability Screening 1969 Alcohol/Substance Use Screening 1981 Hepatitis B Vaccines (3 of 3 - 19+ 3-dose series) 06/30/2016 01/30/2016, 12/29/2015, 12/29/2015 Pneumococcal Vaccine: 50+ Years (1 of 1 - PCV) 2019 Zoster Vaccines (1 of 2) 2019 SDOH Screening 11/07/2024 11/08/2023 Diabetes: Hemoglobin A1C 11/11/2024 11/12/2023 COVID-19 Vaccine (3 - 2024-2 6 season) 2025 11/04/2020, 09/30/2020 Influenza Vaccine (#1) 2025 06/17/2013 Depression Screening 02/23/2025 02/24/2024, 02/24/2024 Tobacco Screening 05/21/2026 05/21/2025 Lipid Panel 07/23/2029 07/23/2024, 11/12/2023 Colonoscopy 08/04/2030 08/04/2020 Colorectal Cancer Screening 08/04/2030 DTaP/Tdap/Td Vaccines (2 - T d or Tdap) 07/22/2034 07/22/2024 RSV Patients and Patients Aged 60 years or older (1 - 1-dose 75+ series) 2044 HIV Screening Completed 07/23/2024 Hepatitis C Screening Completed 07/23/2024 HIB Vaccines Aged Out No longer eligi [...] age to complete this topic Meningococcal B Vaccine Aged Out No l onger eligible based on patient's age to complete [...] 9:33 AM EST Lower urinary tract symptoms HEPATITIS C AB W/REFL TO HCV RNA, QN, PCR Routine 07/23/2024 8:00 AM EST Encounter for health-related screening HIV 1/2 ANTIGEN/ANTIBODY, FOURTH GENERATION W/RFL Routine 07/23/2024 8:00 AM EST Encounter for health-related screening LIPID PANEL, STANDARD Routine 07/23/2024 8:00 AM EST Essential hypertension Hypercholesterolemia HEMOGLOBIN A1C Routine 11/12/2023 8:17 AM EDT Essential hypertension HM COLONOSCOPY Routine 08/04/2020 from Last 3 Months or Most Recently Relevant to Health Maintenance Results * POCT urinalysis dipstick manually resulted (CPT 18083) (05/21/2025 9:33 AM EST) Color, UA Yellow [...] Urine (Urine, Random) 05/21/2025 9:33 AM EST [facility] POINT OF CARE TEST ENTER/EDIT ORDERABLES Final Result * Hepatitis C Antibody with Reflex to HCV, RNA, Quantitative, Real-Time PCR (07/23/2024 8:00 AM EST) Pathologist [facility] Hepatitis C Antibody Nonreactive Nonreactive [facility] Comment:Antibodies to HCV no t detected; does not exclude early acuteHCV infection. Blood Venous blood specimen / Unknown 07/23/2024 8:00 AM EST 07/23/2024 11:36 AM EST Reshma Chiu BIO MEDICAL TECHNICIAN LAB BLOOD ORDERABLES Final Resu lt [facility] [address] [place] [phone] * HIV-1/2 Antigen and Antibodies, Fourth Generation, with Reflexes (07/23/2024 8:00 AM EST) Pathologist [facility] HIV AB/AG Nonreactive Nonreactive [facility] Comment:HIV-1 p24 Ag and/or HIV-1/HIV-2 Ab not detected.A test result that is nonreactive does not exclude thepossibility of exposure to or infection with HIV-1 and/orHIV-2. Nonreactive results in this assay for individualswith prior exposure to HIV-1 and/or HIV-2 may be due toantigen and antibody levels that are below the limit ofdetection of this assay.The [employer] HIV Ag/Ab Combo assay result andsupplemental assay results should be interpreted inconjunction with the patient's clinical presentation,history and other laboratory results. If the results areinconsistent with clinical evidence, additional testing issuggested to confirm the result. Blood Venous blood specimen / Unknown 07/23/2024 8:00 AM EST 07/23/2024 11:36 AM EST Reshma Jon BIO MEDICAL TECHNICIAN LAB BLOOD ORDERABLES Final Resu lt [facility] [address] [place] [phone] * (ABNORMAL) Lipid Panel, Standard (07/23/2024 8:00 AM EST) Triglycerides 47 <150 mg/dL [facility] Comment:Desirable Triglyceri de: less than 150 mg/dLBorderline High Triglyceride 150-199 mg/dLHigh Triglyceride: 200-499 mg/dLVery High Triglyceride: greater than or equal to 5OO mg/dL Cholesterol 193 <200 mg/dL [facility] Comment:Desirable Cholestero l: less than 200 mg/dLBorderline High Cholesterol: 200-239 mg/dLHigh Cholesterol: greater than 239 mg/dL LDL Cholesterol Calculated 136(H) <100 mg/dL [facility] Comment:Desirable LDL: less than 100 mg/dLNear Optimal/Above Optimal LDL: 110- 129 mg/dLBorderline High LDL: 130-159 mg/dLHigh LDL: 160-189 mg/dLVery High LDL: greater than or equal to 190 mg/dL HDL Cholesterol 48 >40 mg/dL [facility] Comment:Desirable HDL: great er than 40 mg/dL Note: This HDL assay may give artificially low results in patients with liver disease. Blood Venous blood specimen / Unknown 07/23/2024 8:00 AM EST 07/23/2024 11:36 AM EST Reshma Chiu BIO MEDICAL TECHNICIAN LAB BLOOD ORDERABLES Final Resu lt [facility] [address] [place] [phone] * Hemoglobin A1c (11/12/2023 8:17 AM EDT) Hemoglobin A1c 5.9 <6.0 % [facility] Comment:Hemoglobin A1C Refer ence Range Adults: 4.8 - 6.0 % Non diabetic: < 6.0 % Goal: < 7.0 %Additional Action Suggested: > 8.0 %Note: Hemoglobin A1c results are invalid for patients with abnormal amounts of HbF. Blood transfusions may impact the HbA1c concentration in the patient sample. Estimated Average Glucose 123 mg/dL [facility] Comment:eAG = Estimated ave rage glucose which is %A1C expressed asaverage glucose, using the formula of the V0L-FkojhbhBpnezka Glucose study (ADAG), Diabetes Care, Vol.31,#8,Jan. 2007 Blood Venous blood specimen / Unknown 11/12/2023 8:17 AM EDT 11/12/2023 11:11 AM EDT Reshma Chiu NP LAB BLOOD ORDERABLES Final Resu lt [facility] [address] [place] [phone] * Colonoscopy (08/04/2020) Colonoscopy Normal Normal Narrative Jena Reyes - 08/04/2020 Recommended 10 years. See See notes in [facility]ovea Historical Provider HEALTH MAINTENANCE Final Result from Last 3 Months or Most Recently Relevant to Health Maintenance Insurance [employer] 3 Care Teams Outsole Paraffiner Relationship Specialty Start Date End Date Reshma Chiu NP [address] [place] [phone] PCP - General Family Medicine 07/08/23
--- OUTSIDE RECORDS SUMMARY | 2025-05-21 10:36 | XMS_ITS | Encounter Summary ---
Author Organization [facility] Address [address] [place] [address] 7 [place] [address] Care Team Providers Care Qi Specialist Name Role Phone Reshma Chiu NP Primary Care Provider [phone] Encounter Details Date Type Department Care Team (Latest Contact Info) Description 05/21/2025 Travel Social History Tobacco Use Types Packs/Day [...] as of this encounter Plan of Treatment Upcoming Encounters Date Type Department Care Team (Late st Contact Info) Description 06/09/2025 10:00 AM EST Clinical Support [facility] [address] [place] [address] documented as of this encounter Visit Diagnoses Not on filedocumented in this encounter Additional Health Concerns Assessment Noted Time PHQ-9 Depression Total Score: 4 02/24/20 24 12:07 PM EDT documented as of this encounter Care Teams Qi Specialist Relationship Specialty Start Date End Date Reshma Chiu NP [address] [place] [address] PCP - General Family Medicine 07/08/23 documented as of this encounter
--- OUTSIDE RECORDS SUMMARY | 2025-05-21 10:36 | XMS_ITS | Encounter Summary ---
Author Organization [facility] Address [address] [place] [address] [address] [place] [address] Care Team Providers Care Sample Clerk Name Role Phone Reshma Chiu NP Primary Care Provider [phone] Reason for Visit * Reason Onset Date Comments Nurse Triage 05/20/2025 Encounter Details Date Type Department Care Team ([facility] st Contact Info) Description 05/20/2025 Telephone [facility] [address] [place] [address] Reshma Chiu NP [address] [place] [address] Nurse Triage Social History Tobacco Use Types Packs/Day Years [...] the past 12 months, has t he [employer], oil or water [employer] threatened to shut off services in your [...] encounter Miscellaneous Notes * Telephone Encounter - Evita Navas RN - 05/20/2025 9:53 AM EST TC x 2 placed to pt at provided phone number [phone] via [employer] conference interpreter (Sterling ID#[id number]). Noanswer on first attempt. Second attempt a woman answered and states there is not a person that lives there by that name. Asked if there is a phone number we can reach [facility]. Individual states theydo not know anyone by that name. Confirmed with conference interpreter number dialed was [phone]. Auto Garage Attendant confirmed phone number that was dialed. TC placed to pt without conference interpreter at provided phone number [phone]. Pt answered. Connected with [employer] conference interpreter (Uma ID#[id number]). Pt reports pain with urination, increased urinary frequency,malodorous urine, lower back pain (8/10 at time of call), and difficulty getting an erection x 2-2.5 months. Pt denies nausea or vomiting. Pt reports they believe they are having fever and chills at times over the last 2-2.5 months. Advised pt recommended to come to [facility] now for evaluation. Pt reports they are working and will try to come tomorrow morning. Stressed importance of provider evaluation today based on length and severity of symptoms. Pt reports they are not able to come to [facility] today and will try to come tomorrow. Advised pt to call office or seek evaluation for new or worsening symptoms. Pt agreeable to plan and denies questions at this time. Protocol Used: Urination Pain - Male (Adult) Disposition for Call (Nurse Override): See in Office Today or Tomorrow Override Reason: Caller refused suggested disposition Protocol-Based Disposition: Go to Office or Video Visit Now Positive Triage Question: * Side (flank) or lower back pain present * All higher-acuity triage questions were negative. Care Advice Discussed: * Reasons To Call Back - Fever over 100.4 F (38.0 C) occurs - Side (flank) or lower back pain occurs - You become worse * Telephone Encounter - [place] Harrington - 05/20/2025 9:16 AM EST Symptom: Urination Pain Outcome: Schedule a same-day appointment or talk to a nurse or provider today Reason: Caller denied all higher acuity questions Please contact pt at [phone]. (Ukrainian Speaker) documented in this encounter Plan of Treatment Upcoming Encounters Date Type Department Care Team (Late st Contact Info) Description 06/09/2025 10:00 AM EST Clinical Support [facility] [address] [place] [address] documented as of this encounter Visit Diagnoses Not on filedocumented in this encounter Additional Health Concerns Assessment Noted Time PHQ-9 Depression Total Score: 4 02/24/20 24 12:07 PM EDT documented as of this encounter Care Teams Sample Clerk Relationship Specialty Start Date End Date Reshma Chiu NP [address] [place] [address] PCP - General Family Medicine 07/08/23 documented as of this encounter
--- OUTSIDE RECORDS SUMMARY | 2025-05-21 10:36 | XMS_ITS | Clinical Summary ---
Author Organization [facility] Address [address] [place] [address] Care Team Providers Care Nipple Maker Name Role Phone Unavailable Primary Care Provider Unavailabl e Social History Tobacco Use Types Packs/Day Years Used Date Smoking Tobacco: Never Assessed Sex and Gender Information Value Date Recorded Sex Assigned at Not on file Legal Sex Male 6:15 AM EST Gender Identity Not on file Sexual Orientation Not on file Plan of Treatment Health Maintenance Due Date Last Done Comments Colorectal Cancer Screening: Colonoscopy 1969 DTaP,Tdap,and Td Vaccines (1 - Tdap) 1988 Hepatitis B Vaccines (1 of 3 - 19+ 3-dose series) 1988 Pneumococcal Vaccine: 50+ Ye ars (1 of 1 - PCV) 2019 Zoster Vaccines (1 of 2) 2019 Cholesterol Screening (Lipid Panel) 01/28/2024 HIV Screening 01/28/2024 Hepatitis C Screening 01/28/2024 Social Influencers of Health Screening 01/28/2024 Depression Screening 06/03/2024 COVID-19 Vaccine (1 - 2024-2 6 season) 2025 Influenza Vaccine (#1) 2025 RSV Immunization Adult Patie nts (1 - 1-dose 75+ series) 2044 HIB [...]
[2025-05-21 13:50] LABS: Alanine Aminotransferase 100 U/L (0-40); Albumin Level 4.3 g/dL (3.5-5.0); Alkaline Phosphatase 63 U/L (39-117); Anion Gap 12 (12-20); Aspartate Amino Transferase 97 U/L (5-37); Blood Urea Nitrogen 10 mg/dL (9-16); Calcium 8.7 mg/dL (8.4-10.2); Carbon Dioxide 26 mmol/L (22-29); Chloride 107 mmol/L (96-108); Estimated Glomerular Filt Rate > 60; Potassium 3.7 mmol/L (3.3-5.1); Sodium 141 mmol/L (135-145); Total Protein 7.7 g/dL (6.5-8.0)
[2025-05-21 14:10] LABS: Prostate Specific Antigen 2.01 ng/mL (<0.05-4.0)
== END 2025-05-21 09:45 | disposition home or self-care (01) ==
LOC: HO.HHCL 09:44
PROVIDERS: PCP Registered Nurse; Visit Provider Registered Nurse
DX: R39.198 Other difficulties with micturition (principal)
CPT/HCPCS: 36415; 80053; 84153